=== PATIENT | female | born 1990 | race Caucasian/White ===

== ENCOUNTER 2017-04-28 08:20 | Day surgery (SDC) | payer BC, MEDICAID ==
[2017-04-27 09:44] VITALS: BMI 20.3
[2017-04-28] VITALS (10 sets, daily range): BP systolic 115–148; BP diastolic 66–82; PULSE 72–96; RESP 11–22; Ht 167.6 cm; Wt 54.3 kg
[~2017-04-28] VITALS: Ht 167.6 cm; Wt 54.3 kg
[~2017-04-28 08:20] MED LIST: CEFAZOLIN 2 GM/50 ML (PMX) 50 ML IVPB ONE; EPHEDrine SULFATE 50 MG/5 ML SYG ONE; PREN-93 PO; PREN1TAB33 PO; PREN1TAB49 PO
[2017-04-28 09:42] LABS: ADD SCAN DIFF NO
[2017-04-28 09:51] LABS: BASOPHIL # 0.1 10^3/ul (0.0-0.1); BASOPHILS % 1.4 % (0.0-2.0); EOSINOPHILS # 0.1 10^3/ul (0.0-0.5); EOSINOPHILS % 1.9 % (0.0-7.0); HEMATOCRIT 40.4 % (37.0-47.0); HEMOGLOBIN 13.1 g/dl (12.0-16.0); LYMPHOCYTES # 1.6 10^3/ul (0.8-2.9); MEAN CORPUSCULAR HGB CONC 32.4 g/dl (32.0-37.0); MEAN CORPUSCULAR VOLUME 92.7 fl (82.0-101.0); MEAN PLATELET VOLUME 11.1 fl (7.4-10.4); MONOCYTE # 0.3 10^3/ul (0.3-0.9); MONOCYTES % 6.4 % (0.0-11.0); NEUTROPHIL # 3.1 10^3/ul (1.6-7.5); NEUTROPHILS % 60.1 % (39.0-77.0); PLATELET COUNT 228 10^3/UL (140-415); RED BLOOD COUNT 4.36 10^6/ul (4.20-5.40); RED CELL DISTRIBUTION WIDTH 12.8 % (11.5-14.5); WHITE BLOOD COUNT 5.2 10^3/ul (4.8-10.8)
[2017-04-28 10:00] LABS: PROTIME 13.2 Sec (12.2-14.2)
[2017-04-28 10:01] LABS: PARTIAL THROMBOPLASTIN TIME 34.4 Sec (25.0-35.0)
[2017-04-28] MEDS ORDERED: LORA1TAB PO (10:04)
[2017-04-28] MEDS ORDERED: CHOL400T10 PO (10:13)
[2017-04-28 10:14] LABS: CALCIUM 9.6 mg/dl (8.4-10.2); CREATININE 0.69 mg/dl (0.44-1.00); POTASSIUM 3.9 mmol/L (3.5-5.1)
[2017-04-28] MEDS ORDERED: FENTAnyl 50 MCG/ML VIAL ONE (10:40)
[2017-04-28] MEDS ORDERED: PROPOFOL 20 ML ONE (10:40)
[2017-04-28] MEDS ORDERED: LIDOCAINE 2% (SDV) 5 ML INJ ONE (10:40)
[2017-04-28] MEDS ORDERED: MIDAZOLAM 1 MG/ML 2 ML INJ ONE (10:40)
[2017-04-28] MEDS ORDERED: PHENYLephrine (100 MCG/ML) 5ML SYG ONE (10:55)
[2017-04-28] MEDS ORDERED: CEFAZOLIN 1 GM INJ ONE (10:57)
[2017-04-28] MEDS ORDERED: ONDANSETRON 4 MG INJ IV PRN ×2 (11:00→12:30)
[2017-04-28] MEDS ORDERED: MEPERIDINE 25 MG INJ IV PRN (11:00)
[2017-04-28] MEDS ORDERED: PROCHLORPERAZINE 10 MG INJ IV PRN (11:00)
[2017-04-28] MEDS ORDERED: OXYCODONE/ACETAMINOPHEN (5/325) TAB PO PRN (11:00)
[2017-04-28] MEDS ORDERED: DIPHENHYDRAMINE 50 MG INJ IV PRN (11:00)
[2017-04-28] MEDS ORDERED: FENTAnyl 50 MCG/ML VIAL IV PRN (11:00)
[2017-04-28] MEDS ORDERED: HYDROmorphONE (0.2 MG/ML) 10ML SYG IV PRN ×3 (11:00)
[2017-04-28] MEDS ORDERED: ONDANSETRON 4 MG INJ ONE (11:14)
[2017-04-28] MEDS ORDERED: METOCLOPRAMIDE 10 MG INJ ONE (11:14)
[2017-04-28] MEDS ORDERED: DEXAMETHASONE 4 MG/ML 1 ML INJ ONE (11:14)
[2017-04-28] MEDS ORDERED: HYDROmorphONE 2 MG/ML SYG ONE (12:06)
[2017-04-28] MEDS ORDERED: LACTATED RINGER'S 1,000 ML IV SCH ×2 (12:19)
[2017-04-28] MEDS ORDERED: morphine 2 MG INJ IV PRN (12:30)
[2017-04-28] MEDS ORDERED: HYDROCODONE/APAP (5/325) TAB PO PRN ×2 (12:30)
--- NOTE | 2017-04-28 17:23 | OPR ---
DATE OF OPERATION: 04/28/2017 SURGEON: Dr. Simon Obrien [employer]RETT[employer]UMENT [employer]KER HAND: None. ANESTHESIA: General. ANESTHESIOLOGIST: Dr. Singer. PREOPERATIVE DIAGNOSIS: Right breast mass, possible fibroadenoma . POSTOPERATIVE DIAGNOSIS: Right breast mass, possible fibroadenoma. Pending pathology report. OPERATION PERFORMED: Wide excision of the mass as a partial mastectomy. ESTIMATED BLOOD LOSS: 10 mL. Specimen was sent for pathologic evaluation, oriented with silk sutures. INDICATION: The patient is a 26-year-old female, mother of 3 children, who was referred to my office because of the presence of swelling on the left chest wall. She was evaluated. Meanwhile they found that the patient has a 2.5 x 3- cm soft, firm and movable lump in the right breast. CT scan of the chest for evaluation of the left breast mass did not reveal any mass over there, but confirmed the presence of a lump in the right breast. The patient stated that she has had this for several years and maybe recently it has increased in size, so discussed with the patient the alternatives of treatment, risks and benefits of the operation, complications including bleeding, infection, possible recurrence. The patient and her understood. They agreed and wanted the operation to be done. PROCEDURE: The patient was brought to the operating room and placed on the operating table in the supine position. Anesthesia was induced by the anesthesiologist. Antibiotic, 2 grams of Ancef, was given IV. The right breast and chest wall was prepped with chloral solution, draped in a sterile fashion. A time-out was called. The patient was identified. The site of the operation was identified, type of operation was discussed among the team, and all concerns were discussed. Then the skin incision, curvilinear, on the right breast, right side of the nipple areolar complex, about 5 cm, carried down through the subcutaneous tissue. Then using electrocautery I went all around the mass while the mass was under the surgeons hand, elevated superiorly, inferiorly, laterally and medially. I eventually exteriorly excised the mass with a rim of breast tissue surrounding the mass. Hemostasis was completely achieved with electrocautery. There was no evidence of bleeding or oozing. Then the wound was closed in 2 layers, first with 4-0 Vicryl interrupted sutures were applied, deep dermal layer and a second was closed in subcuticular fashion with #5 PDS in continuous running fashion. At the end, Dermabond was applied and then Telfa and then a bulky dressing was applied and taped in place. The patient tolerated the procedure well. Sponge and instrument counts were reported to be correct x2. The specimen was sent for pathologic evaluation for permanent. Dictated By: SIMON OBRIEN MD PS/NTS Conf#: [id number] DID#: [id number]
== END 2017-04-28 14:35 | disposition home or self-care (01) ==
LOC: SDS 08:20
DX: D24.1 Benign neoplasm of right breast (principal)
CPT/HCPCS: 19301; 80048; 84703; 85025; 85610; 85730; 88307; J0690; J1100; J1170; J2250; J2370; J2405; J2765; J3010; Z7512; Z7610